=== PATIENT | female | born 1985 | race Caucasian/White ===

== ENCOUNTER 2017-11-10 08:21 | Emergency (ER) | payer OTHER ==
[~2017-11-10 08:21] MED LIST: DEPO-PROVE150 MG/1 M IM; KETOROLAC TROME10 MG PO; LAMICTAL200 MG PO; LEVAQUIN500 MG PO; MAGNESIUM200 MG PO; NORCO 5-325 TA1 EACH MT; POTASSIUM CHLO10 MEQ PO; PRENATAL MULTI1 EACH PO; PROMETHAZINE HC25 M1 MT; PYRIDIUM200 MG PO; SUBUTEX8 MG; TAMSULOSIN HCL0.4 MG PO; TUSSIN DM COUG118 ML PO; ZITHROMAX250 MG PO; ZOFRAN4 MG PO
[2017-11-10] MEDS ORDERED: GOLYTELY SOLU4000 ML PO (13:25)
[2017-11-10] MEDS ORDERED: ZOFRAN ODT4 MG PO (13:26)
== END 2017-11-10 13:43 | disposition home or self-care (01) ==
LOC: ED 08:21
DX: K29.70 Gastritis, unspecified, without bleeding (principal); K59.00 Constipation, unspecified; F17.200 Nicotine dependence, unspecified, uncomplicated; Z90.49 Acquired absence of other specified parts of digestive tract; Z88.1 Allergy status to other antibiotic agents; Z88.0 Allergy status to penicillin; Z88.2 Allergy status to sulfonamides; Z88.8 Allergy status to other drugs, medicaments and biological substances; Z79.899 Other long term (current) drug therapy
CPT/HCPCS: 36415; 74000; 80053; 81001; 84703; 85025; 96361; 96374; 99283; J2405; J7030

== ENCOUNTER 2018-04-09 22:08 | Emergency (ER) | payer OTHER ==
[~2018-04-09] VITALS: Ht 165.1 cm; Wt 68.0 kg
[~2018-04-09 22:08] MED LIST changes: +GOLYTELY SOLU4000 ML PO; +ZOFRAN ODT4 MG PO
[2018-04-09] MEDS ORDERED: NUVIGIL250 MG PO (22:28)
== END 2018-04-09 23:05 | disposition home or self-care (01) ==
LOC: ED 22:08
DX: R41.0 Disorientation, unspecified (principal); R06.02 Shortness of breath; R42 Dizziness and giddiness; R51 Headache; R20.2 Paresthesia of skin; T43.695A Adverse effect of other psychostimulants, initial encounter; F17.200 Nicotine dependence, unspecified, uncomplicated; Z88.0 Allergy status to penicillin; Z88.2 Allergy status to sulfonamides; Z79.899 Other long term (current) drug therapy
CPT/HCPCS: 99282

== ENCOUNTER 2022-10-09 18:48 | Emergency (ER) | payer OTHER ==
[~2022-10-09] VITALS: Ht 165.1 cm; Wt 95.6 kg
[~2022-10-09 18:48] MED LIST changes: +NUVIGIL250 MG PO
--- OUTSIDE RECORDS SUMMARY | 2022-10-09 18:50 | XMS ---
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 Goran has no Care Guidelines for this patient. Lynn VISIT COUNT (12 MO.) 1 DANIEL Mendez TOTAL 1 NOTE: Visits indicate total known visits. ED/C VISIT TRACKING (12 MO.) 10/09/2022 18:49 DANIEL Palmer OR TYPE: Emergency COMPLAINT: - FLANK PAIN INPATIENT VISIT TRACKING (12 MO.) No inpatient visits to display in this time frame [id number]
[2022-10-09] MEDS ORDERED: BUPROPION XL300 MG PO (20:25)
[2022-10-09] MEDS ORDERED: OMEPRAZOLE40 MG PO (20:25)
== END 2022-10-10 00:39 | disposition home or self-care (01) ==
LOC: ED 18:48
DX: S39.012A Strain of muscle, fascia and tendon of lower back, initial encounter (principal); I10 Essential (primary) hypertension; F17.200 Nicotine dependence, unspecified, uncomplicated; Z88.0 Allergy status to penicillin; Z88.2 Allergy status to sulfonamides; Z79.899 Other long term (current) drug therapy; X58.XXXA Exposure to other specified factors, initial encounter
CPT/HCPCS: 36415; 74176; 80053; 81001; 84703; 85025; 96372; 99284-25; J1885